=== PATIENT | male | born 1985 | race Caucasian/White ===

== ENCOUNTER 2019-08-11 21:40 | Observation (INO) ==
[2019-08-11 22:22] LABS: Basophils # 0.1 K/mcL (0.0-0.2); Basophils % 1.7 %; Eosinophils # 0.1 K/mcL (0.0-0.6); Eosinophils % 0.9 %; Hematocrit 46.6 % (37.5-50.1); Immature Granulocytes % 0.3 % (0-4); Lymphocytes % 26.3 %; Mean Corpuscular HGB Conc 34.3 g/dL (31.6-35.5); Mean Corpuscular Hemoglobin 31.3 pg (28.0-33.3); Mean Corpuscular Volume 91.2 fL (83.0-100.0); Mean Platelet Volume 8.7 fL (9.4-12.4); Monocytes # 1.1 K/mcL (0.0-1.3); Monocytes % 14.9 %; Neutrophils # 4.2 K/mcL (1.6-8.9); Platelet Count 373 K/mcL (140-400); Red Blood Count 5.11 M/mcL (4.19-5.50); Red Cell Distribution Width 13.5 % (11.5-14.5); Segmented Neutrophils % 55.9 %; White Blood Count 7.5 K/mcL (4.3-11.1)
[2019-08-11 22:24] LABS: Bilirubin,Urine Negative (Negative); Blood,Urine Negative (Negative); Clarity,Urine Clear (Clear); Color,Urine Yellow (Yellow); Glucose,Urine (UA) Normal (Normal); Ketones,Urine Negative (Negative); Leukocyte Esterase,Urine Negative (Negative); Nitrite,Urine Negative (Negative); Protein,Urine Negative (Neg-Trace); Specific Gravity,Urine 1.007 (1.010-1.025); Urobilinogen,Urine Normal (Normal)
[2019-08-11 22:30] LABS: Amphetamine Screen,Urine Negative ng/mL (Cutoff=1000); Barbiturate Screen,Urine Negative ng/mL (Cutoff=200); Benzodiazepines Screen,Urine Negative ng/mL (Cutoff=200); Cannabinoid Screen,Urine Negative ng/mL (Cutoff = 50); Cocaine Screen,Urine Negative ng/mL (Cutoff= 300); Opiate Screen,Urine Negative ng/mL (Cutoff=300); Phencyclidine Screen,Urine Negative ng/mL (Cutoff=25)
[2019-08-11 22:41] LABS: Acetaminophen < 10 mcg/mL (10-20); BUN/Creatinine Ratio 11 (6-26); Blood Urea Nitrogen 8 mg/dL (6-20); Calcium 9.1 mg/dL (8.6-10.3); Carbon Dioxide 24 mEq/L (23-29); Chloride 103 mEq/L (98-107); Ethanol 401 mg/dL (Less than 10); Glucose 132 mg/dL (70-105); Osmolality,Calculated 288 (280-300); Potassium 3.6 mEq/L (3.5-5.1); Salicylate < 2.5 mg/dL (15.0-30.0); Sodium 139 mEq/L (136-145); eGFR For African Americans > 60 (> 60); eGFR For Non-African Americans > 60 (> 60)
[2019-08-12] MEDS ORDERED: Ondansetron 4 MG/2 ML VIAL IVP ONE ×2 (01:10→04:46)
[2019-08-12] MEDS ORDERED: Ondansetron ODT 4 MG TAB.RAPDIS SL ONE (01:27)
[2019-08-12] MEDS ORDERED: *HR* Promethazine 25 MG/ML VIAL IVP ONE (06:36)
[2019-08-12] MEDS ORDERED: Mag Hydrox/Al Hydrox/Simeth 30 ML UDC PO PRN (11:00)
[2019-08-12] MEDS ORDERED: *HR* LORazepam 2 MG/ML VIAL IM PRN (11:00)
[2019-08-12] MEDS ORDERED: Acetaminophen 325 MG TABLET PO PRN (11:00)
[2019-08-12] MEDS ORDERED: traZODone 50 MG TABLET PO PRN (11:00)
[2019-08-12] MEDS ORDERED: haloperidoL 5 MG TABLET PO PRN (11:00)
[2019-08-12] MEDS ORDERED: hydrOXYzine pamoate 25 MG CAPSULE PO PRN (11:00)
[2019-08-12] MEDS ORDERED: *HR* LORazepam 1 MG TABLET PO PRN (11:00)
[2019-08-12] MEDS ORDERED: MOM Conc 10 ML UD.LIQ PO PRN (11:00)
[2019-08-12] MEDS ORDERED: Haloperidol Lactate 5 MG/ML VIAL IM PRN (11:00)
[2019-08-12] MEDS: Nicotine 14 MG PATCH.TD24 TD SCH (12:56)
[2019-08-13] MEDS: Nicotine 14 MG PATCH.TD24 TD SCH (09:07)
[2019-08-13 09:40] VITALS: BP 148/94
== END 2019-08-13 15:30 | disposition home or self-care (01) ==
LOC: EMEROOARM 21:40 → 1ANU 08-12 10:59 → INTOOBSV 08-12 11:00 → 1ANU 08-12 11:43
PROVIDERS: ADMIT Psychiatry & Neurology Psychiatry; ATTEND Psychiatry & Neurology Psychiatry